=== PATIENT | male | born 1960 | race Two or more races ===

== ENCOUNTER → 2020-06-15 | Emergency (ER) | payer OTHER ==
[~2020-06-15] VITALS: Ht 172.7 cm; Wt 75.3 kg
[~2020-06-15] MED LIST: DEMEROL100 MG; DICLOFENAC SODI75 MG PO; LIPITOR40 M1; PERCOCET 10-321 EACH; STRIBILD TABLE1 EACH
== END | disposition home or self-care (01) ==
LOC: ER 10:52
DX: S30.0XXA Contusion of lower back and pelvis, initial encounter (principal); V49.9XXA Car occupant (driver) (passenger) injured in unspecified traffic accident, initial encounter; Y93.89 Activity, other specified; Y92.488 Other paved roadways as the place of occurrence of the external cause; Y99.8 Other external cause status

== ENCOUNTER 2021-07-18 09:17 | Day surgery (SDC) | payer OTHER | END 2021-07-18 14:50 | disposition home or self-care (01) | LOC: AMB-ENDOS 09:17 | PROVIDERS: ATTEND Surgery | DX: K51.20 Ulcerative (chronic) proctitis without complications (principal); Z91.041 Radiographic dye allergy status; Z87.891 Personal history of nicotine dependence; E78.5 Hyperlipidemia, unspecified; K60.0 Acute anal fissure; E03.9 Hypothyroidism, unspecified; Z85.048 Personal history of other malignant neoplasm of rectum, rectosigmoid junction, and anus; Z92.21 Personal history of antineoplastic chemotherapy; K92.2 Gastrointestinal hemorrhage, unspecified; Z20.822 Contact with and (suspected) exposure to COVID-19 ==

== ENCOUNTER 2021-07-18 10:03 | Outpatient (CLI) | payer OTHER | END 2021-07-18 10:11 | disposition home or self-care (01) | LOC: LAB 10:03 | PROVIDERS: ATTEND Surgery | DX: Z03.818 Encounter for observation for suspected exposure to other biological agents ruled out (principal) ==

== ENCOUNTER 2021-08-08 09:39 | Outpatient (CLI) | payer OTHER | END 2021-08-08 10:00 | disposition home or self-care (01) | LOC: TOM 09:39 | PROVIDERS: ATTEND Surgery | DX: C20 Malignant neoplasm of rectum (principal); R19.5 Other fecal abnormalities; K92.2 Gastrointestinal hemorrhage, unspecified; D37.5 Neoplasm of uncertain behavior of rectum ==

== ENCOUNTER 2021-11-08 13:30 | Inpatient (IN) | payer OTHER ==
[~2021-11-08] VITALS: Ht 172.7 cm; Wt 74.4 kg
[~2021-11-08 13:30] MED LIST changes: -DEMEROL100 MG; +MEPERITAB50 MG
[2021-11-12] MEDS ORDERED: FENOFIBRATE145 MG (14:45)
[2021-11-12] MEDS ORDERED: RESTORIL30 MG (14:46)
[2021-11-12] MEDS ORDERED: FARXIGA10 MG (14:46)
[2021-11-12] MEDS ORDERED: VITAMIN D31250 MCG (14:46)
[2021-11-12] MEDS ORDERED: SYNTHROID175 MCG (14:46)
[2021-11-12] MEDS ORDERED: ALPRAZOLAM2 MG (14:46)
[2021-11-12] MEDS ORDERED: DIPHENOXYLATE-1 EACH (14:46)
[2021-11-12] MEDS ORDERED: CLONAZEPAM2 MG (14:47)
[2021-11-12] MEDS ORDERED: LORAZEPAM2 MG (14:47)
[2021-11-12] MEDS ORDERED: QUETIAPINE FUM150 MG (14:47)
[2021-11-12] MEDS ORDERED: CARISOPRODOL350 MG (14:47)
[2021-11-12] MEDS ORDERED: COLESTIPOL HCL1 GM (14:50)
[2021-11-12] MEDS ORDERED: GLIPIZIDE ER5 MG (14:50)
[2021-11-12] MEDS ORDERED: CREON DR 36,001 EACH (14:50)
[2021-11-12] MEDS ORDERED: ESOMEPRAZOLE MA40 MG (14:51)
[2021-11-12] MEDS ORDERED: CYCLOBENZAPRINE10 MG (14:51)
[2021-11-12] MEDS ORDERED: ZOVIRAX400 MG (14:51)
[2021-11-14] MEDS ORDERED: ELIQUIS2.5 MG PO (15:30)
[2021-11-14] MEDS ORDERED: CEFADROXIL500 MG PO (15:30)
[2021-11-14] MEDS ORDERED: PERCOCET 5-3251 EACH PO (15:30)
== END 2021-11-14 19:37 | DRG 470 ==
LOC: O/R 11-12 06:17 → SURH 11-12 06:17
PROVIDERS: ADMIT Orthopaedic Surgery; ATTEND Orthopaedic Surgery
PROC: 0SRB0JZ Replacement of Left Hip Joint with Synthetic Substitute, Open Approach (ICD-10-PCS; principal; 2021-11-12 19:00)
DX: M16.12 Unilateral primary osteoarthritis, left hip (principal); M87.052 Idiopathic aseptic necrosis of left femur; D62 Acute posthemorrhagic anemia; B20 Human immunodeficiency virus [HIV] disease; C18.9 Malignant neoplasm of colon, unspecified; E03.9 Hypothyroidism, unspecified; I10 Essential (primary) hypertension; Z96.642 Presence of left artificial hip joint

== ENCOUNTER 2022-11-01 18:58 | Emergency (ER) | payer OTHER ==
[~2022-11-01] VITALS: Ht 172.7 cm; Wt 72.6 kg
[~2022-11-01 18:58] MED LIST changes: +ALPRAZOLAM2 MG; +CARISOPRODOL350 MG; +CEFADROXIL500 MG PO; +CLONAZEPAM2 MG; +COLESTIPOL HCL1 GM; +CREON DR 36,001 EACH; +CYCLOBENZAPRINE10 MG; +DIPHENOXYLATE-1 EACH; +ELIQUIS2.5 MG PO; +ESOMEPRAZOLE MA40 MG; +FARXIGA10 MG; +FENOFIBRATE145 MG; +GLIPIZIDE ER5 MG; +LORAZEPAM2 MG; +PERCOCET 5-3251 EACH PO; +QUETIAPINE FUM150 MG; +RESTORIL30 MG; +SYNTHROID175 MCG; +VITAMIN D31250 MCG; +ZOVIRAX400 MG
== END 2022-11-01 21:44 | disposition home or self-care (01) ==
LOC: ER 18:58
DX: M25.552 Pain in left hip (principal); M54.59 Other low back pain; Z88.8 Allergy status to other drugs, medicaments and biological substances

== ENCOUNTER 2023-11-12 17:16 | Emergency (ER) | payer OTHER ==
[~2023-11-12] VITALS: Ht 172.7 cm; Wt 68.0 kg
[2023-11-12] MEDS ORDERED: TRADJENTA5 MG (17:59)
[2023-11-12] MEDS ORDERED: GLIPIZIDE10 MG (17:59)
[2023-11-12] MEDS ORDERED: RISPERIDONE2 MG (18:00)
[2023-11-12] MEDS ORDERED: ACETAMINOPHEN WITH CODEINE 1 UDTAB TABLET PO ONE (20:00)
[2023-11-12] MEDS ORDERED: KETOROLAC TROMETHAMINE 60 MG VIAL IM ONE ×2 (20:00→20:06)
[2023-11-12] MEDS ORDERED: MINERAL OIL 30 ML BLIST.PACK ONE (20:06)
[2023-11-12] MEDS ORDERED: MAGNESIUM HYDROXIDE 30 ML BLIST.PACK PO ONE (20:06)
[2023-11-12] MEDS ORDERED: LACTULOSE 20 G/30 ML BLIST.PACK ONE ×2 (20:06→23:31)
[2023-11-12] MEDS ORDERED: MAGNESIUM HYDROXIDE 400 MG/5 ML ML PO ONE (20:30)
[2023-11-12] MEDS ORDERED: MINERAL OIL 30 ML BLIST.PACK PO ONE (20:30)
[2023-11-12] MEDS ORDERED: LACTULOSE 20 G/30 ML BLIST.PACK PO ONE (20:30)
[2023-11-12] MEDS ORDERED: LACTULOSE 10 G/15 ML ML PO ONE (23:30)
[2023-11-13] MEDS ORDERED: BARIUM SULFATE 450 ML ORAL.SUSP PO ONE (01:15)
[2023-11-13] MEDS ORDERED: MINERAL OIL 30 ML BLIST.PACK ONE (04:10)
[2023-11-13] MEDS ORDERED: HYDROGEN PEROXIDE 473 ML BOTTLE TOP ONE (04:10)
[2023-11-13] MEDS ORDERED: RINGERS SOLUTION,LACTATED 1,000 ML IV STA (05:18)
[2023-11-13] MEDS ORDERED: MEPERIDINE HCL/PF 50 MG/ML VIAL IM STA (05:18)
[2023-11-13] MEDS ORDERED: PROMETHAZINE HCL 50 MG/ML AMPUL IM STA (05:19)
[2023-11-13] MEDS ORDERED: PROMETHAZINE HCL 50 MG/ML AMPUL IM ONE (05:29)
[2023-11-13 07:20] LABS: HEMATOCRIT 49.4 % (39.0-48.0); HEMOGLOBIN 16.8 g/dL (13-16.00); MEAN CELL VOLUME 95.9 fL (80.0-100.00); MEAN CORPUSCULAR HEMOGLOBIN 32.5 pg (27.00-32.0); MEAN CORPUSCULAR HGB CONC 33.9 g/dl (32.0-36.0); PLATELET COUNT 160 K/uL (150-450); RED BLOOD COUNT 5.15 M/uL (4.00-6.00); RED CELL DISTRIBUTION WIDTH 13.9 % (11.5-14.5)
[2023-11-13 07:37] LABS: ALBUMIN 4.6 gm/dL (3.4-5.0); BILIRUBIN TOTAL 0.66 mg/dL (0.3-1.2); CALCIUM 9.6 mg/dL (8.5-10.1); CREATININE SERUM 1.45 mg/dL (0.70-1.30); GFR 49.15; GLOBULINA 3.8 G/DL (2.4-3.5); POTASSIUM 3.25 mEq/L (3.5-5.1); TOTAL PROTEIN 8.4 gm/dL (6.4-8.2)
[2023-11-13 09:15] LABS: INR 1.05; PARTIAL THROMBOPLASTIN TIME 31.5 SECONDS (22.0-34.0); PROTHROMBIN TIME 11.4 SECONDS (9.0-11.5)
== END 2023-11-13 12:53 | disposition home or self-care (01) ==
LOC: ER 17:16
DX: K59.00 Constipation, unspecified (principal); Z88.8 Allergy status to other drugs, medicaments and biological substances; K40.90 Unilateral inguinal hernia, without obstruction or gangrene, not specified as recurrent; Z90.49 Acquired absence of other specified parts of digestive tract
CPT/HCPCS: 36415; 74018; 74177; 96372; 99284; J1885; J2250; J3490; Q9965